=== PATIENT | female | born 1940 | race Caucasian/White ===

== ENCOUNTER → 2016-08-10 | Outpatient (CLI) | payer OTHER ==
--- NOTE | ~2016-08-10 | US136 ---
[facility] A Service of [facility] & [facility] / [facility] RADIOLOGY TEXT RESULTS PATIENT: COLLIN GUEVARA LOCATION: CNIV : 40 UNIT #: [id number] AGE: [address]: VIVI PAYNE APRN SEX: F ORDER DR: [id number] [facility] [address] [place], [place] [address] [id number] O MR#: [id number] Acc #: [id number] NAME: COLLIN GUEVARA : 1940 SEX: F STUDY DATE/TIME: 08/10/2016 10:25 UNIT: CNIV ROOM: STUDY DESCRIPTION: US U/L Ext Art Study [facility] Bil Attending Physician: Vivi Payne Referring Physician: Raymond Ellison M.D. Ordering Physician: Staff Doctor Not On Primary Care Physician: Erlin Chu M.D. MEDICAL IMAGING REPORT This report is preliminary unless electronic signature is present EXAM Bilateral umvqv-gu-eoynagou indices INDICATION Right-sided claudication and numbness and tingling. TECHNIQUE Sequential pressures were obtained through both lower extremities and pulse volume recordings were generated. FINDINGS The patient's ascoi-aq-mafjvioj indices are abnormal bilaterally measuring 0.90 at the dorsalis pedis artery on the right and 0.81 at the posterior tibial artery on the right. The pdipu-pl-xofxyfbt index of the posterior tibial artery on the left is 0.78 and the dorsalis pedis artery on the left is 0.83. The toe-brachial indices are also diminished measuring 0.66 on the right and 0.43 on the left. I think overall there is probably some damping of the waveforms within the lower extremities. IMPRESSION Diminished azqmv-uw-hqxhmilb indices bilaterally. These are actually more decreased on the left than on the right. I think the findings are certainly suggestive of multiple levels of arterial disease. CT angiography abdomen and pelvis with bilateral lower extremity runoff could be considered for additional evaluation. Patient's nqf-ml-iwvfiiqk indices are diminished bilaterally as well, again, this is more significant on the left. It is unclear if this is related to inflow disease or small vessel disease or a combination of both. Dictated by... Stephenie Izaguirre M.D. [facility] A Service of [facility] & [facility] / [facility] RADIOLOGY TEXT RESULTS PATIENT: COLLIN GUEVARA LOCATION: [facility] : 40 UNIT #: [id number] AGE: [address]: VIVI PAYNE APRN SEX: F ORDER DR: THIS IS AN ELECTRONICALLY VERIFIED REPORT Stephenie Izaguirre M.D. at 08/10/2016 5:21 PM AFF/aa TD: 08/10/2016 14:38 JOB #: [id number] MEDICAL IMAGING REPORT COPY
--- NOTE | ~2016-08-10 | US83 ---
[facility] A Service of [facility] & [facility] RADIOLOGY TEXT RESULTS PATIENT: COLLIN GUEVARA LOCATION: CNIV : 40 UNIT #: [id number] AGE: [address]: VIVI PAYNE APRN SEX: F ORDER DR: [id number] [facility] [address] [place], [place] [address] [id number] O MR#: [id number] Acc #: [id number] NAME: COLLIN GUEVARA : 1940 SEX: F STUDY DATE/TIME: 08/10/2016 10:46 UNIT: CNIV ROOM: STUDY DESCRIPTION: [employer] Attending Physician: Vivi Payne Referring Physician: Raymond Ellison M.D. Ordering Physician: Axel Not Listed Primary Care Physician: Erlin Chu M.D. MEDICAL IMAGING REPORT This report is preliminary unless electronic signature is present EXAM Right lower extremity arterial Doppler, 08/10/2016. HISTORY Claudication on the right. Patient underwent deployment of superficial femoral artery stent on 08/10/2016. This is a follow-up study. COMPARISON STUDIES This is made to this patient's ankle-brachial indices. TECHNIQUE Grayscale, color Doppler, and spectral Doppler wave form analysis was performed through the right lower extremity. FINDINGS The patient's velocities within the right common femoral artery are very elevated at 284 cm/sec. I do not see any obvious stenosis, but velocities more distally within the stent are diminished at 52 cm/sec. This would certainly be suggestive of some stenosis involving the proximal stent. The right popliteal artery distal to the stent shows normal-appearing wave forms. The distal right popliteal artery, however, shows some elevated velocities, and velocities within the right tibioperoneal trunk are also elevated, although the velocity within the distal posterior tibial artery at the ankle is diminished. Again, this could reflect some stenosis involving the proximal to mid posterior tibial artery. The patient's ankle-brachial indices are diminished on the right, although they are certainly better than on the contralateral side. IMPRESSION Velocities within the right common femoral artery are very elevated with diminished velocities seen distally within the right superficial artery within the patient's superficial femoral artery stent. This could STS. [facility] A Service of [facility] & [facility] RADIOLOGY TEXT RESULTS PATIENT: COLLIN GUEVARA LOCATION: [facility] : 40 UNIT #: [id number] AGE: [address]: VIVI PAYNE APRN SEX: F ORDER DR: potentially reflect some stenosis within the stent. CT angiography or catheter angiography could be considered for additional evaluation. Patient's ankle-brachial indices on the right are mildly diminished, but are better than on the contralateral side. There potentially may also be some disease within the mid to distal posterior tibial artery. The patient's anterior tibial artery and dorsalis pedis artery were not imaged on this study. Dictated by... Stephenie Izaguirre M.D. THIS IS AN ELECTRONICALLY VERIFIED REPORT Stephenie Izaguirre M.D. at 08/10/2016 5:17 PM POOJA/helio TD: 08/10/2016 14:47 JOB #: [id number] MEDICAL IMAGING REPORT COPY
== END | disposition home or self-care (01) ==
LOC: CNIV 10:08
DX: I73.9 Peripheral vascular disease, unspecified (principal)
CPT/HCPCS: 93922; 93926

== ENCOUNTER → 2016-11-28 | Outpatient (CLI) | payer OTHER ==
[2016-11-28 14:12] LABS: BUN/CREATININE RATIO 20.9; CALCIUM SERUM 8.6 mg/dL (8.4-10.2); CREATININE SERUM 1.1 mg/dL (0.6-1.4); GLOM FILT RATE Estimated 48.7 mL/min (>60); POTASSIUM 4.8 mmol/L (3.5-5.1)
== END | disposition home or self-care (01) ==
LOC: CLAB 13:07
PROVIDERS: Internal Medicine Cardiovascular Disease
DX: N28.9 Disorder of kidney and ureter, unspecified (principal)
CPT/HCPCS: 36415; 80048

== ENCOUNTER → 2016-12-02 | Outpatient (CLI) | payer OTHER ==
[2016-12-02 12:28] LABS: BUN/CREATININE RATIO 24.44; CALCIUM SERUM 8.7 mg/dL (8.4-10.2); CREATININE SERUM 0.9 mg/dL (0.6-1.4); GLOM FILT RATE Estimated 62.2 mL/min (>60); POTASSIUM 4.7 mmol/L (3.5-5.1)
== END | disposition home or self-care (01) ==
LOC: CLAB 11:30
PROVIDERS: Internal Medicine Cardiovascular Disease
DX: N28.9 Disorder of kidney and ureter, unspecified (principal)
CPT/HCPCS: 36415; 80048

== ENCOUNTER → 2017-01-11 | Outpatient (CLI) | payer OTHER ==
[2017-01-11 12:14] LABS: BASOPHIL% 0.6 % (0-2.5); EOSINOPHIL# 0.2 X10e3 (0-0.7); EOSINOPHIL% 2.6 % (0.0-7.0); HEMATOCRIT 34.4 % (35.0-45.0); HEMOGLOBIN 11.3 gm/dL (12.0-16.0); LYMPHOCYTE# 1.7 X10e3 (1.0-3.5); LYMPHOCYTE% 23.8 % (17.0-45.0); MEAN CELL VOLUME 88.6 FL (83-96); MEAN CORPUSCULAR HEMOGLOBIN 29.2 PG (28-34); MEAN PLATELET VOLUME 7.4 FL (6.5-11.5); MONOCYTE# 0.4 X10e3 (0-1.0); MONOCYTE% 5.8 % (3.0-12.0); NEUTROPHIL# 4.8 X10e3 (1.5-7.1); NEUTROPHIL% 67.2 % (40-75); PLATELET COUNT 250 X10e3 (140-420); RED BLOOD COUNT 3.88 X10e (3.90-5.30); RED CELL DISTRIBUTION WIDTH 14.4 % (11.0-15.5); WHITE BLOOD COUNT 7.2 X10e3 (4.0-10.5)
[2017-01-11 12:18] LABS: DIFF IND NO
[2017-01-11 12:44] LABS: ALBUMIN SERUM 3.5 g/dL (3.5-5.0); BILIRUBIN,TOTAL 0.2 mg/dL (0.2-2.0); CALCIUM SERUM 8.9 mg/dL (8.4-10.2); GLOM FILT RATE Estimated 54.7 mL/min (>60); PROTEIN TOTAL SERUM 6.7 g/dL (6.0-8.3)
[2017-01-11 12:56] LABS: POTASSIUM 5.6 mmol/L (3.5-5.1)
== END | disposition home or self-care (01) ==
LOC: CLAB 11:40
PROVIDERS: Internal Medicine
DX: D64.9 Anemia, unspecified (principal); N28.9 Disorder of kidney and ureter, unspecified
CPT/HCPCS: 36415; 80053; 85025

== ENCOUNTER → 2017-01-25 | Outpatient (CLI) | payer OTHER ==
[2017-01-25 12:47] LABS: BUN/CREATININE RATIO 21.81; CALCIUM SERUM 8.5 mg/dL (8.4-10.2); CREATININE SERUM 1.1 mg/dL (0.6-1.4); GLOM FILT RATE Estimated 48.7 mL/min (>60); POTASSIUM 5.4 mmol/L (3.5-5.1)
== END | disposition home or self-care (01) ==
LOC: CLAB 11:35
PROVIDERS: Internal Medicine
DX: I25.10 Atherosclerotic heart disease of native coronary artery without angina pectoris (principal); R60.9 Edema, unspecified; E78.5 Hyperlipidemia, unspecified
CPT/HCPCS: 36415; 80048